=== PATIENT | female | born 1980 | race Caucasian/White ===

== ENCOUNTER → 2020-10-13 | Outpatient (CLI) | payer OTHER ==
[~2020-10-13] MED LIST: CLARITIN 1010 MG/TAB PO; FERROUS SU325 MG/TAB PO; IBU600 MG PO; IRON 27 MG PO; MAGNESIUM ELEME30 MG PO; PERCOCET 325 MG1 TA2 PO; PRENATAL PO
== END ==
LOC: DIA.ED 12:21
DX: O24.419 Gestational diabetes mellitus in pregnancy, unspecified control (principal)
CPT/HCPCS: G0108

== ENCOUNTER → 2020-10-29 | Outpatient (CLI) | payer OTHER | LOC: DIA.ED 09:12 | DX: O24.419 Gestational diabetes mellitus in pregnancy, unspecified control (principal) | CPT/HCPCS: G0108 ==

== ENCOUNTER 2020-12-12 15:53 | Outpatient (CLI) | payer OTHER ==
[~2020-12-12] VITALS: Ht 170.2 cm; Wt 119.5 kg
[2020-12-12 16:00] VITALS: BP 143/86; PULSE 69; TEMP 98.1
[2020-12-12 16:15] VITALS: BP 145/92; PULSE 68
[2020-12-12 16:29] LABS: HEMOGLOBIN 11.3 g/dl (12.5-16.0); MEAN CELL VOLUME 82 fl (80.0-100.0); MEAN CORPUSCULAR HEMOGLOBIN 28 pg (27.0-31.0); MEAN CORPUSCULAR HGB CONC 34 g/dl (33.0-37.0); MEAN PLATELET VOLUME 12.3 fl (7.4-10.4); PLATELET COUNT 142 K/mm3 (130-400); RED BLOOD COUNT 4.11 M/mm3 (4.10-5.30); REDCELL DISTRIBUTION WIDTH-CV 15.6 % (11.5-14.5)
[2020-12-12 16:30] VITALS: BP 143/86; BP 152/90; PULSE 69; PULSE 70; TEMP 98.1
[2020-12-12 16:31] LABS: HEMATOCRIT 33.6 % (37.0-47.0)
[2020-12-12 16:35] LABS: MUCOUS Present /lpf; PH 7 (5-8); URINE APPEARANCE Clear; URINE BACTERIA Occasional /hpf; URINE BILIRUBIN Negative (NEGATIVE); URINE BLOOD Negative (NEGATIVE); URINE COLOR Colorless; URINE GLUCOSE Negative (NEGATIVE); URINE KETONE Negative (NEGATIVE); URINE LEUKOCYTE ESTERASE Negative (NEGATIVE); URINE NITRATE Negative (NEGATIVE); URINE PROTEIN(semi-quant) Negative (NEGATIVE); URINE RBC 0-2 /hpf; URINE UROBILINOGEN Negative (NEGATIVE); URINE WBC 0-2 /hpf
[2020-12-12 16:38] LABS: ALBUMIN 3.3 gm/dL (3.5-5.0); BILIRUBIN,TOTAL 0.1 mg/dL (0.0-1.0); CALCIUM 8.8 mg/dL (8.4-10.2); CREATININE, serum 0.62 (0.52-1.25); POTASSIUM 4.2 mmol/L (3.4-5.0); TOTAL PROTEIN 6.8 gm/dL (6.4-8.2)
[2020-12-12 16:43] LABS: COLLECTION METHOD CLEAN CATCH
[2020-12-12 16:45] VITALS: BP 148/86; PULSE 75
[2020-12-12 17:00] VITALS: BP 153/89; PULSE 69
== END 2020-12-12 17:26 | disposition home or self-care (01) ==
LOC: LDRO 15:53
PROVIDERS: Obstetrics & Gynecology
DX: O13.3 Gestational [pregnancy-induced] hypertension without significant proteinuria, third trimester (principal); Z3A.39 39 weeks gestation of pregnancy

== ENCOUNTER 2020-12-15 09:56 | Inpatient (IN) | payer OTHER ==
[~2020-12-15] VITALS: Ht 165.1 cm; Wt 119.5 kg
[2020-12-16] VITALS (10 sets, daily range): BP systolic 135–153; BP diastolic 63–88; PULSE 69–90; TEMP 97.4–98.2
--- NOTE | 2020-12-16 19:15 | NUR ---
PT TO UNIT AMBULATORY WITH SPOUSE FOR SCHEDULED CYTOTEC INDUCTION. PT CHANGED INTO GOWN, ORIENTED TO ROOM. VS OBTAINED, EFMX2 APPLIED. QUESTIONS ENCOURAGED AND ANSWERED.
[2020-12-16] MEDS ORDERED: PRENATAL PO (19:46)
[2020-12-16] MEDS ORDERED: IRON 27 MG PO (19:47)
[2020-12-16] MEDS ORDERED: MAGNESIUM ELEME30 MG PO (19:48)
[2020-12-16] MEDS ORDERED: CLARITIN 1010 MG/TAB PO (19:48)
[2020-12-16 20:25] LABS: BASO % 0.4 % (0.0-2.0); EOS # 0.1 (0.0-0.7); EOS % 1.5 % (0-4.0); GRAN # 5.9 (1.4-6.5); GRAN % 73.4 % (42.2-75.2); HEMOGLOBIN 11.1 g/dl (12.5-16.0); LYMPH # 1.5 (1.2-3.4); LYMPH % 18.2 % (20.0-51.0); MEAN CELL VOLUME 83 fl (80.0-100.0); MEAN CORPUSCULAR HEMOGLOBIN 28 pg (27.0-31.0); MEAN CORPUSCULAR HGB CONC 33 g/dl (33.0-37.0); MEAN PLATELET VOLUME 12.3 fl (7.4-10.4); MONO # 0.4 (0.1-0.6); MONO % 5.4 % (1.7-9.3); PLATELET COUNT 148 K/mm3 (130-400); RED BLOOD COUNT 4.02 M/mm3 (4.10-5.30); REDCELL DISTRIBUTION WIDTH-CV 15.8 % (11.5-14.5)
[2020-12-16 20:31] LABS: HEMATOCRIT 33.4 % (37.0-47.0)
[2020-12-16 20:37] LABS: ALANINE AMINOTRANSFERASE 17 U/L (4-34); ALBUMIN 3.3 gm/dL (3.5-5.0); ALKALINE PHOSPHATASE 183 U/L (50-136); ANION GAP 7 mmol/L (7-16); AST,SGOT 22 U/L (15-37); BILIRUBIN,TOTAL < 0.1 mg/dL (0.0-1.0); BLOOD UREA NITROGEN 12 mg/dL (7-17); CALCIUM 8.5 mg/dL (8.4-10.2); CARBON DIOXIDE 18 mmol/L (22-30); CHLORIDE 106 mmol/L (98-107); CREATININE, serum 0.65 (0.52-1.25); GLUCOSE 138 mg/dL (74-106); POTASSIUM 3.9 mmol/L (3.4-5.0); SODIUM 131 mmol/L (137-145); TOTAL PROTEIN 6.6 gm/dL (6.4-8.2)
[2020-12-17] VITALS (80 sets, daily range): BP systolic 122–185; BP diastolic 58–98; PULSE 58–130; TEMP 97.4–98.7
--- NOTE | 2020-12-17 04:41 | NUR ---
PT OFF MONITORS TO USE BATHROOM AND AMBULATE PRIOR TO STARTING PITOCIN. BLOOD SUGAR- 88
--- NOTE | 2020-12-17 06:45 | NUR ---
PT USING BEDSIDE HOME ACCUCHECK MACHINE, CURRENT BLOOD GLUCOSE:96
--- NOTE | 2020-12-17 07:15 | NUR ---
PT UP TO RESTROOM, REQUESTING TO SIT UP IN RECLINER, DIFFICULTY TRACING EFM/TOCO THROUGHOUT THIS OCCURENCE, PT DENIES CONTRACTIONS, ABDOMEN REMAINS SOFT, UNABLE TO PALPATE CONTRACTIONS THROUGHOUT THIS ENCOUNTER, WILL CONTINUE WITH CURRENT POC PER PROTOCOL
--- NOTE | 2020-12-17 08:30 | NUR ---
BLOOD GLUCOSE:84 PER PT HOME ACCUCHECK MACHINE
--- NOTE | 2020-12-17 08:35 | NUR ---
AT BEDSIDE, BEDSIDE ULTRASOUND CONFIRMS VERTEX POSITION, VERBAL ORDERS TO LEAVE PITOCIN AT 20MU UNTIL HE RETURNS OVER HIS LUNCH HOUR, SVE REMAINS CLOSED/THICK/HIGH, PT EDUCATED ON POC WELL CSECTION POTENTIAL, PT REQUESTING TO CONTINUE WITH PITOCIN AND CURRENT POC AT THIS TIME
--- NOTE | 2020-12-17 10:30 | NUR ---
BLOOD GLUCOSE:79
--- NOTE | 2020-12-17 12:21 | NUR ---
AT BEDSIDE, SVE /-2, AROM W/ CLEAR FLUID, NO NEW ORDERS AT THIS TIME, CONTINUE WITH IOL POC PER PROTOCOL
--- NOTE | 2020-12-17 12:40 | NUR ---
BLOOD GLUCOSE: 84
--- NOTE | 2020-12-17 16:28 | NUR ---
BLOOD GLUCOSE:155
--- NOTE | 2020-12-17 19:47 | NUR ---
DR GOOD AT BEDSIDE
--- NOTE | 2020-12-17 20:42 | NUR ---
PATIENT WAS VOMITING WHILE BLOOD PRESSURE WAS BEING TAKEN. BP OF 185/98 IS INACCURATE.
[2020-12-18] VITALS (35 sets, daily range): BP systolic 97–155; BP diastolic 7–94; PULSE 62–97; TEMP 97.8–98.3
--- NOTE | 2020-12-18 05:25 | NUR ---
DR. NUENZ AT [facility] TO ASSESS PATIENT.
--- NOTE | 2020-12-18 05:38 | NUR ---
DR NUNEZ AT BEDSIDE PUSHING WITH PATIENT 0054
--- NOTE | 2020-12-18 05:42 | NUR ---
DR NUNEZ AT [facility]
--- NOTE | 2020-12-18 05:44 | NUR ---
DR NUNEZ APPLIED VACCUM AT 0204 THROUGH 2 CONTRACTIONS. VACCUM POPPED OFF AT 0209. VACCUM REAPPLIED AT 0210 AND POPPED OFF AT 0211. CALLED AT [address] CARVALHO ORDERS
--- NOTE | 2020-12-18 06:30 | NUR ---
Report from JES Pineda and care of patient assumed at this time. RN at bedside to review plan of care, patient reports intense abdominal cramping. 0630- See PP Recovery documentation. See EMAR. 0650- See PP recovery documentation. Fundal check notes fundus 1 above umbilicus, firm. Softball size and golfball size clot noted on pad with moderate amount of free flow, ceases with massage. Clots and underpad weighed at 425 ml. Pitocin and Lr infusing, see EMAR. Complete pericare given and underpads changed. 0655- Attempt to call Dr. Collins, phone busy. 0700- See physician notification. Orders for Hemabate and continue infusing Pitocin bag. Pharmacy notified and Hemabate requested stat. Patient states she has a history of asthma. Dr. Collins notified, see physician notification. Orders for 800 mcg Cytotec. Pharmacy notified as out of stock on unit, requested stat. RN remains at bedside, see PP recovery documentation. 0730- Dr. collins on unit, updated on patient assessment. Pharmacy in progress of bringing Cytotec to unit.
--- NOTE | 2020-12-18 07:38 | NUR ---
Physician at bedside. orders to give Hemabate as patient reports asthma is exercise induced.
--- NOTE | 2020-12-18 07:41 | NUR ---
Note- Hemabate not given after being previously scanned. Give at this time in right thigh.
--- NOTE | 2020-12-18 07:55 | NUR ---
Pads weighed after placing Cytotec. See I&O for weighed blood loss. Physician on unit and notified.
--- NOTE | 2020-12-18 08:00 | NUR ---
Dr. Shah at bedside. Reviews vital signs and medications, vaginal bleeding. Reiewed fasting blood glucose of 127. Orders to progress diet as tolerated and check 2 hour PP sugars.
--- NOTE | 2020-12-18 08:31 | NUR ---
patient refuses COVID19 test. Has been fully vaccinated
[2020-12-18 11:16] LABS: MEAN CELL VOLUME 84 fl (80.0-100.0); MEAN CORPUSCULAR HGB CONC 33 g/dl (33.0-37.0); MEAN PLATELET VOLUME 12.1 fl (7.4-10.4); PLATELET COUNT 166 K/mm3 (130-400); RED BLOOD COUNT 3.06 M/mm3 (4.10-5.30); REDCELL DISTRIBUTION WIDTH-CV 15.9 % (11.5-14.5)
[2020-12-18 11:18] LABS: HEMATOCRIT 25.8 % (37.0-47.0); HEMOGLOBIN 8.5 g/dl (12.5-16.0); MEAN CORPUSCULAR HEMOGLOBIN 28 pg (27.0-31.0)
[2020-12-18 11:29] LABS: ALBUMIN 2.4 gm/dL (3.5-5.0); BILIRUBIN,TOTAL 0.1 mg/dL (0.0-1.0); CALCIUM 7.4 mg/dL (8.4-10.2); CREATININE, serum 0.69 (0.52-1.25); POTASSIUM 4.4 mmol/L (3.4-5.0); TOTAL PROTEIN 5.2 gm/dL (6.4-8.2)
[2020-12-18 11:50] LABS: ANISOCYTOSIS 2+; HYPOCHROMIA 1+; LYMPHOCYTE 4 % (20.0-51.0); NEUTROPHILS 93 % (42.0-75.2); PLATELET ESTIMATE NORMAL (NORMAL)
--- NOTE | 2020-12-18 15:00 | NUR ---
Patient requesting covid19 test. completed and sent to lab.
--- NOTE | 2020-12-18 22:55 | NUR ---
PT UP TO BATHROOM, ABLE TO VOID UNMEASUREABLE AMOUNT DUE TO ALSO PASSING LARGE CLOT WEIGHING 484GM. SEE PHYSICIAN NOTIFICATION.
[2020-12-19 00:35] VITALS: BP 127/52; PULSE 86; TEMP 98.3
[2020-12-19 05:54] VITALS: BP 116/59; PULSE 80; TEMP 97.9
[2020-12-19 06:59] VITALS: BP 115/60; PULSE 80; TEMP 97.8
[2020-12-19] MEDS ORDERED: FERROUS SU325 MG/TAB PO (07:01)
[2020-12-19] MEDS ORDERED: PERCOCET 325 MG1 TA2 PO (07:01)
[2020-12-19] MEDS ORDERED: IBU600 MG PO (07:01)
[2020-12-19 07:41] LABS: MEAN CELL VOLUME 85 fl (80.0-100.0); MEAN CORPUSCULAR HGB CONC 34 g/dl (33.0-37.0); MEAN PLATELET VOLUME 11.7 fl (7.4-10.4); PLATELET COUNT 167 K/mm3 (130-400); RED BLOOD COUNT 2.23 M/mm3 (4.10-5.30); REDCELL DISTRIBUTION WIDTH-CV 16.3 % (11.5-14.5)
[2020-12-19 07:47] LABS: HEMOGLOBIN 6.4 g/dl (12.5-16.0); MEAN CORPUSCULAR HEMOGLOBIN 29 pg (27.0-31.0)
[2020-12-19 07:48] LABS: ALANINE AMINOTRANSFERASE 13 U/L (4-34); ALBUMIN 2.5 gm/dL (3.5-5.0); ALKALINE PHOSPHATASE 120 U/L (50-136); ANION GAP 1 mmol/L (7-16); AST,SGOT 32 U/L (15-37); BILIRUBIN,TOTAL < 0.1 mg/dL (0.0-1.0); BLOOD UREA NITROGEN 15 mg/dL (7-17); CALCIUM 7.7 mg/dL (8.4-10.2); CARBON DIOXIDE 26 mmol/L (22-30); CHLORIDE 101 mmol/L (98-107); CREATININE, serum 0.78 (0.52-1.25); GLUCOSE 87 mg/dL (74-106); POTASSIUM 4.7 mmol/L (3.4-5.0); SODIUM 128 mmol/L (137-145); TOTAL PROTEIN 5.3 gm/dL (6.4-8.2)
--- NOTE | 2020-12-19 08:25 | NUR ---
RN TALKED WITH PATIENT ABOUT HGB LEVEL OF 6.4. INFORMED PATIENT THAT A BLOOD TRANSFUSION MAY HELP HER FEEL BETTER IF SHE BECOMES SYMPTOMATIC; HOWEVER, DR. NUNEZ OKAY WITH HER HOLDING OFF ON BLOOD TRANSFUSION IF SHE IS FEELING OKAY. PATIENT STATES SHE WOULD LIKE TO SEE HOW SHE FEELS TODAY AND NOT GET TRANSFUSION JOSE THIS TIME. RN GAVE PATIENT VERBAL EDUCATION ON S/SX OF LOW HGB. UNDERSTANDING VERBALIZED.
[2020-12-19 08:35] LABS: ANISOCYTOSIS 1+; EOSINOPHIL 1 % (0-4); LYMPHOCYTE 16 % (20.0-51.0); PLATELET ESTIMATE NORMAL (NORMAL)
[2020-12-19 08:36] LABS: NEUTROPHILS 72 % (42.0-75.2)
[2020-12-19 08:37] LABS: BAND 6 % (0-10); MYELOCYTE 1 % (0-0)
--- NOTE | 2020-12-19 10:19 | NUR ---
Initial visit attempt; Family resting, [employer] left card of congratulations for the of their daughter and information regarding the availability of spiritual care at [facility].
[2020-12-19 16:23] VITALS: BP 120/58; PULSE 85; TEMP 98.5
[2020-12-19 19:10] VITALS: BP 134/68; PULSE 87; TEMP 98
[2020-12-20] VITALS (19 sets, daily range): BP systolic 123–144; BP diastolic 46–78; PULSE 74–98; TEMP 98–98.8
[2020-12-20 08:36] LABS: HEMATOCRIT 17.3 % (37.0-47.0); HEMOGLOBIN 5.7 g/dl (12.5-16.0)
[2020-12-20 09:05] LABS: ALANINE AMINOTRANSFERASE 15 U/L (4-34); ALBUMIN 2.6 gm/dL (3.5-5.0); ALKALINE PHOSPHATASE 114 U/L (50-136); ANION GAP 2 mmol/L (7-16); AST,SGOT 29 U/L (15-37); BILIRUBIN,TOTAL < 0.1 mg/dL (0.0-1.0); BLOOD UREA NITROGEN 12 mg/dL (7-17); CALCIUM 7.7 mg/dL (8.4-10.2); CARBON DIOXIDE 25 mmol/L (22-30); CHLORIDE 106 mmol/L (98-107); CREATININE, serum 0.74 (0.52-1.25); GLUCOSE 85 mg/dL (74-106); POTASSIUM 4.3 mmol/L (3.4-5.0); SODIUM 133 mmol/L (137-145); TOTAL PROTEIN 5.5 gm/dL (6.4-8.2)
[2020-12-21 06:15] LABS: HEMATOCRIT 24.5 % (37.0-47.0); HEMOGLOBIN 8.1 g/dl (12.5-16.0)
[2020-12-21 06:49] VITALS: BP 142/72; PULSE 73; TEMP 98.1
== END 2020-12-21 10:19 | disposition home or self-care (01) | DRG 787 ==
LOC: OB 09:56 → LDR 12-16 19:07 → OB 12-18 11:23
PROVIDERS: Obstetrics & Gynecology; ADMIT Obstetrics & Gynecology
PROC: 10D00Z1 Extraction of Products of Conception, Low, Open Approach (ICD-10-PCS; principal; 2020-12-16)
DX: O13.4 Gestational [pregnancy-induced] hypertension without significant proteinuria, complicating childbirth (principal); D62 Acute posthemorrhagic anemia; E87.1 Hypo-osmolality and hyponatremia; Z3A.40 40 weeks gestation of pregnancy; O62.1 Secondary uterine inertia; O99.824 Streptococcus B carrier state complicating childbirth; O99.214 Obesity complicating childbirth; E66.9 Obesity, unspecified; O24.420 Gestational diabetes mellitus in childbirth, diet controlled; Z37.0 Single live birth; O90.81 Anemia of the puerperium; O99.285 Endocrine, nutritional and metabolic diseases complicating the puerperium; O72.1 Other immediate postpartum hemorrhage
CPT/HCPCS: J0690; J1885; J1940; J2175; J2270; J2370; J2400; J2405; J2540; J2590; J2795; J7120; P9016